=== PATIENT | male | born 1960 | race Caucasian/White ===

== ENCOUNTER → 2020-06-11 | Day surgery (SDC) | payer OTHER ==
[~2020-06-11] MED LIST: BASAGLAR K100 UNIT/1 SC; BUPROPION XL150 MG PO; CENTRUM SILVER1 EAC5 PO; CITALOPRAM HBR20 MG PO; FLOMAX0.4 MG PO; INSULIN LI100 UNIT/2 SC; LIPITOR 10MG TA10 MG PO; MELOXICAM7.5 MG PO; METFORMIN HCL500 MG PO
[2020-06-11 08:35] LABS: HCT 45.6 % (42.0-52.0); HGB 15.5 g/dl (13.2-18.0); MCH 29.1 pg (25.0-31.0); MCV 85.6 fL (78.0-100.0); MPV 10.7 fL (6.0-9.5); RBC 5.33 M/uL (4.70-6.00); RDW 12.9 % (11.5-14.0); WBC 7.7 K/uL (4.0-10.5)
[2020-06-11 09:13] LABS: ALBUMIN 4.3 g/dL (3.4-5.0); BILIRUBIN - TOTAL 0.8 mg/dL (0.2-1.0); BUN/CREAT RATIO (CALC) 10.2 RATIO; CREATININE 1.08 mg/dL (0.67-1.17); GLOBULIN (CALCULATION) 3.7 g/dL; POTASSIUM 3.9 mmol/L (3.5-5.1)
== END | disposition home or self-care (01) ==
LOC: FAS 08:03
PROVIDERS: Surgery
DX: Z12.11 Encounter for screening for malignant neoplasm of colon (principal); E11.9 Type 2 diabetes mellitus without complications; E78.00 Pure hypercholesterolemia, unspecified; K21.9 Gastro-esophageal reflux disease without esophagitis; N42.9 Disorder of prostate, unspecified; M19.90 Unspecified osteoarthritis, unspecified site; I10 Essential (primary) hypertension; Z20.822 Contact with and (suspected) exposure to COVID-19; Z79.84 Long term (current) use of oral hypoglycemic drugs; Z88.8 Allergy status to other drugs, medicaments and biological substances; Z86.59 Personal history of other mental and behavioral disorders; Z87.19 Personal history of other diseases of the digestive system; Z82.49 Family history of ischemic heart disease and other diseases of the circulatory system; Z79.899 Other long term (current) drug therapy
CPT/HCPCS: 36415; 80053; J2250; J2704; J7120